=== PATIENT | female | born 1995 | race Caucasian/White ===

== ENCOUNTER 2021-03-05 07:53 | Outpatient (CLI) | payer BC, SELFPAY ==
[2021-03-05 19:40] LABS: Basophils Absolute Auto 0.1 K/mm3 (0.0-0.1); Basophils Percent Auto 0.5 % (0.2-1.2); Eosinophils Absolute Auto 0.2 K/mm3 (0-0.3); Eosinophils Percent Auto 1.2 % (0-4.4); Hematocrit 45.7 % (37.0-47.0); Hemoglobin 14.5 g/dL (12.0-15.0); Immature Granulocyte Absolute 0.05 K/mm3 (0.00-0.031); Immature Granulocyte Percent A 0.4 % (0-0.5); Lymphocytes Absolute Auto 4.78 K/mm3 (0.9-3.2); Lymphocytes Percent Auto 39.1 % (18.3-44.2); Mean Corpuscular HGB Conc 31.7 g/dl (32-36); Mean Corpuscular Hemoglobin 27.9 pg (26-34); Mean Corpuscular Volume 88.1 fl (80-100); Mean Platelet Volume 12.2 fl (7.4-10.4); Monocytes Absolute Auto 1.1 K/mm3 (0.1-0.6); Monocytes Percent Auto 8.9 % (2.6-8.5); Neutrophils Absolute Auto 6.1 K/mm3 (1.3-6.7); Neutrophils Percent Auto 49.9 % (45.5-73.1); Platelet Count Result 278 k/mm3 (150-375); Red Blood Count 5.19 M/mm3 (4.2-5.4); Red Cell Distribution Width 13.4 % (11.5-14.5); White Blood Count 12.2 K/mm3 (4.5-10.0)
[2021-03-05 19:49] LABS: Alanine Aminotransferase 122 U/L (4-35); Albumin Level 4.8 g/dL (3.5-5.1); Alkaline Phosphatase 77 U/L (38-126); Anion Gap 11 mmol/L (8-16); Aspartate Amino Transferase 63 U/L (14-36); Bilirubin,Total 0.8 mg/dL (0.2-1.3); Blood Urea Nitrogen 18 mg/dL (7-17); Calcium 10.2 mg/dL (8.4-10.2); Carbon Dioxide 27 mmol/L (22-30); Chloride 102 mmol/L (98-107); Estimated Glomerular Filt Rate > 60; Glucose 94 mg/dL (65-110); Potassium 4.1 mmol/L (3.4-5.0); Sodium 140 mmol/L (137-145)
[2021-03-05 20:03] LABS: Cholesterol 251 mg/dL (0-200)
[2021-03-05 20:05] LABS: LDL Cholesterol Direct 99 mg/dL
[2021-03-05 20:30] LABS: Triglycerides 813 mg/dL (<150)
== END 2021-03-05 07:54 | disposition home or self-care (01) ==
LOC: ANHBWCLAB 07:55
PROVIDERS: PCP Family Medicine; Visit Provider Family Medicine
DX: Z00.00 Encounter for general adult medical examination without abnormal findings (principal)
CPT/HCPCS: 36415; 80053; 80061; 85025

== ENCOUNTER 2021-05-08 09:27 | Outpatient (CLI) | payer BC, SELFPAY ==
[2021-05-08 21:28] LABS: Total Triiodothyronine (T3) 1.79 NG/ML (0.97-1.69)
[2021-05-13 08:11] LABS: FSH 3.6 mIU/mL (***); LH 4.6 mIU/mL (***); Prolactin 6.4 ng/mL (***)
[2021-05-15 13:27] LABS: Testosterone Free 11.4 pg/mL (0.1-6.4); Testosterone Total 69 ng/dL (2-45)
[2021-05-21 23:32] LABS: Estradiol, Ultrasensitive 68 pg/mL
== END 2021-05-08 09:28 | disposition home or self-care (01) ==
LOC: ANHBWCLAB 09:28
PROVIDERS: PCP Family Medicine; Visit Provider Obstetrics & Gynecology
DX: N91.5 Oligomenorrhea, unspecified (principal)
CPT/HCPCS: 36415; 82670; 83001; 83002; 84146; 84402; 84403; 84439; 84443; 84480

== ENCOUNTER 2021-05-12 10:19 | Outpatient (CLI) | payer BC, SELFPAY | END 2021-05-12 10:20 | disposition home or self-care (01) | LOC: ANHBWCLAB 10:20 | PROVIDERS: PCP Family Medicine; Visit Provider Family Medicine | DX: R53.83 Other fatigue (principal) | CPT/HCPCS: 82530 ==

== ENCOUNTER 2022-08-10 08:46 | Outpatient (CLI) | payer BC, SELFPAY ==
[2022-08-10 19:20] LABS: Hematocrit 48.7 % (37.0-47.0); Hemoglobin 15.1 g/dL (12.0-15.0); Mean Corpuscular Hemoglobin 27.6 pg (26-34); Mean Platelet Volume 11.3 fl (7.4-10.4); Platelet Count Result 223 k/mm3 (150-375); Red Blood Count 5.47 M/mm3 (4.2-5.4); Red Cell Distribution Width 13.4 % (11.5-14.5); White Blood Count 9.1 K/mm3 (4.5-10.0)
[2022-08-10 20:53] LABS: Alanine Aminotransferase 38 U/L (6-35); Albumin Level 4.6 g/dL (3.5-5.1); Alkaline Phosphatase 67 U/L (38-126); Anion Gap 6 mmol/L (8-16); Aspartate Amino Transferase 50 U/L (14-36); Bilirubin,Total 0.6 mg/dL (0.2-1.3); Blood Urea Nitrogen 16 mg/dL (7-17); Calcium 9.4 mg/dL (8.4-10.2); Carbon Dioxide 30 mmol/L (22-30); Chloride 103 mmol/L (98-107); Cholesterol 236 mg/dL (0-200); Estimated Glomerular Filt Rate > 60; Glucose 79 mg/dL (65-110); HDL Direct 31 mg/dL; Potassium 4.3 mmol/L (3.4-5.0); Sodium 139 mmol/L (137-145)
[2022-08-10 20:57] LABS: Triglycerides 589 mg/dL (<150)
[2022-08-10 20:58] LABS: LDL Cholesterol Direct 88 mg/dL
== END 2022-08-10 08:47 | disposition home or self-care (01) ==
LOC: ANHBWCLAB 08:48
PROVIDERS: PCP Family Medicine; Visit Provider Family Medicine
DX: E28.2 Polycystic ovarian syndrome (principal); E66.01 Morbid (severe) obesity due to excess calories; E78.1 Pure hyperglyceridemia; F06.4 Anxiety disorder due to known physiological condition; F32.A Depression, unspecified; F41.0 Panic disorder [episodic paroxysmal anxiety]; F41.9 Anxiety disorder, unspecified; G47.00 Insomnia, unspecified; L73.2 Hidradenitis suppurativa; R53.83 Other fatigue; R74.8 Abnormal levels of other serum enzymes; Z00.00 Encounter for general adult medical examination without abnormal findings; Z68.41 Body mass index [BMI] 40.0-44.9, adult
CPT/HCPCS: 36415; 80053; 80061; 85027

== ENCOUNTER 2023-04-26 11:43 | Outpatient (CLI) | payer BC, SELFPAY ==
[2023-04-26 19:33] LABS: Hematocrit 45.1 % (37.0-47.0); Hemoglobin 14.3 g/dL (12.0-15.0); Mean Corpuscular HGB Conc 31.7 g/dl (32-36); Mean Corpuscular Hemoglobin 28.1 pg (26-34); Mean Corpuscular Volume 88.8 fl (80-100); Mean Platelet Volume 11.2 fl (7.4-10.4); Platelet Count Result 208 k/mm3 (150-375); Red Blood Count 5.08 M/mm3 (4.2-5.4); Red Cell Distribution Width 12.9 % (11.5-14.5)
[2023-04-26 19:34] LABS: Alanine Aminotransferase 22 U/L (6-35); Albumin Level 4.6 g/dL (3.5-5.1); Alkaline Phosphatase 59 U/L (38-126); Anion Gap 8 mmol/L (8-16); Aspartate Amino Transferase 36 U/L (14-36); Bilirubin,Total 0.6 mg/dL (0.2-1.3); Blood Urea Nitrogen 12 mg/dL (7-17); Calcium 9.5 mg/dL (8.4-10.2); Carbon Dioxide 26 mmol/L (22-30); Chloride 104 mmol/L (98-107); Estimated Glomerular Filt Rate > 60; Glucose 87 mg/dL (65-110); Potassium 4.4 mmol/L (3.4-5.0); Sodium 138 mmol/L (137-145)
[2023-04-26 20:25] LABS: Hepatitis B Surface Antigen Negative (Negative)
[2023-04-26 20:31] LABS: HAV RESULT Negative (Negative); Hepatitis B Core IgM Result Negative (Negative)
[2023-04-26 20:42] LABS: Hepatitis C Virus Antibody Negative (Negative)
== END 2023-04-26 11:44 | disposition home or self-care (01) ==
LOC: ANHBWCLAB 11:44
PROVIDERS: PCP Family Medicine; Visit Provider Family Medicine
DX: E66.01 Morbid (severe) obesity due to excess calories (principal); E78.1 Pure hyperglyceridemia; F32.A Depression, unspecified; F41.9 Anxiety disorder, unspecified; G47.00 Insomnia, unspecified; N91.3 Primary oligomenorrhea; R74.8 Abnormal levels of other serum enzymes; Z68.41 Body mass index [BMI] 40.0-44.9, adult
CPT/HCPCS: 36415; 80053; 80074; 85027